=== PATIENT | male | born 1950 | race Caucasian/White ===

== ENCOUNTER 2019-02-20 14:09 | Inpatient (IN) | payer MEDICARE, BC, SELFPAY ==
[2019-02-20] VITALS (61 sets, daily range): BP systolic 150–208; BP diastolic 79–103; PULSE 65–94; RESP 11–23; TEMP 36.6–36.8; O2SAT 93–98
--- NOTE | 2019-02-20 14:39 | DI.RAD_ITS ---
SYMPTOMS/DIAGNOSIS: PRESYNCOPE PA AND LATERAL CHEST: The heart is normal in size. The lungs are clear. The mediastinal structures and pleura appear intact. CONCLUSION: Normal chest.
[2019-02-20 14:58] LABS: Abs Immature Grans 0.03 k/cumm (0.0-0.09); Absolute Eosinophil Count 0.06 k/cumm (0.0-0.7); Absolute Lymphocyte Count 2.21 k/cumm (1.2-3.4); Absolute Monocyte Count 0.86 k/cumm (0.11-0.7); Basophils % 0.2; Eosinophils % 0.5; HCT 43.2 % (40.0-50.0); HGB 14.3 g/dL (13.5-17.5); Immature Grans % 0.2; Lymphocytes % 18.2; Mean Corp. HGB Concentration 33.1 g/dL (32.0-36.0); Mean Corpuscular Hemoglobin 29.6 pg (27.0-33.0); Mean Corpuscular Volume 89.4 fL (80-95); Mean Platelet Volume 10.3 fL (8.0-11.0); Monocytes % 7.1; Neutrophils % 73.8; Platelet Count 195 x1000/uL (130-400); RBC 4.83 m/cumm (4.50-6.00); RBC Distribution Width 13.4 % (11.8-14.1); White Blood Cell Count 12.14 k/cumm (4.4-10.8)
[2019-02-20 14:59] LABS: Absolute Basophil Count 0.02 k/cumm (0.0-0.2); Absolute Neutrophil Count 8.96 k/cumm (1.2-6.7)
[2019-02-20 15:28] LABS: ALT 33 U/L (12-78); AST 17 U/L (15-37); Albumin 3.8 g/dL (3.4-5.0); Alkaline Phosphatase 88 U/L (46-116); Anion Gap 11.6 mmol/L (3-11); BUN 23 mg/dL (7-18); Bilirubin, Total 0.4 mg/dL (0.2-1.0); CO2 25.4 mmol/L (21.0-32.0); CREATININE 0.96 mg/dL (0.70-1.30); Calcium 9.1 mg/dL (8.5-10.1); Chloride 102 mmol/L (98-107); Glucose 136 mg/dL (70-100); Magnesium 1.9 mg/dL (1.8-2.4); Potassium 3.8 mmol/L (3.5-5.1); Sodium 139 mmol/L (136-145); Total Protein 8.2 g/dL (6.4-8.2)
[2019-02-20 15:29] LABS: D-Dimer 630 ng/mlFEU (<500)
--- NOTE | 2019-02-20 15:30 | DI.CT_ITS ---
SYMPTOM/DIAGNOSIS: ELEVATED D DIMER, PRESYNCOPE CT ANGIOGRAPHY CHEST: 02/20 CT angiography was performed with multi slice acquisition and multi planar and 3D reconstruction. CT angiography of the chest was performed with a bolus infusion of 100 cc Omnipaque 350. The images are somewhat limited due to patient's size, and motion artifact. No central pulmonary embolus identified. No embolus identified to the segmental level. More peripheral vessels not adequately evaluated. Ascending aorta ectatic at 42 mm, no aneurysm or dissection. The lungs are grossly clear with limited visualization of the lung bases secondary to breathing motion. Tracheobronchial tree appears intact. No gross mediastinal mass or adenopathy. No pleural effusion. CONCLUSION: Technically limited exam. No gross evidence of pulmonary embolic disease.
[2019-02-20 15:32] LABS: Troponin I < 0.05 ng/mL (0.00-0.06)
--- NOTE | 2019-02-20 15:33 | ED.GENADUL_ITS ---
Discharge Plan Disposition Condition: Stable Discharge Details Chief Complaint: AMS/LOC Admit Date/Time: 02/20/19 23:08 Admit Provider: Pietro Fitzpatrick Attending Provider: Pietro Fitzpatrick Primary Care Provider: Poly Geller ED Provider: Bulmaro Perez Discharge Instructions Activity:: No strenuous Activity, No heavy lifting Equipment/Supplies:: No Equipment Needed Diet:: Carb Counting Discharge Orders Discharge Orders: Discharge Order (Routine); Ordered 02/22/19 Ordered By: Chandana Moreau Discharge Data Discharge Date/Time-TO BE ENTERED AT DEPARTURE: 02/20/19 20:00 Medical Decision Making 15:40 --68-year-old male with history of long-standing hypertension, does not seek medical care and is not treated with antihypertensives, here after presyncopal episode just prior to arrival lasted about an hour. Episode was not associated with chest pain or shortness of breath and patient is asymptomatic at this time. Patient is hypertensive. Consider hypertensive crisis. ECG was reviewed and interpreted by me: Normal sinus rhythm 92 bpm, normal axis, ST depressions are noted in lead I, aVL, no STEMI, nondiagnostic. Patient has no chest pain at this time. I will send troponin. Concern for aortic stenosis given murmur, elevated blood pressure. No signs of overt heart failure. Will check BNP. Considered PE. Patient low risk. D-dimer elevated. Plan to proceed with CT of the chest. --CTA of the chest interpreted by radiology: IMPRESSION: 1. No definite pulmonary embolism is seen to the level of the lobar pulmonary arterial branches bilaterally. The heterogeneous or decreased density of some small segmental and subsegmental pulmonary arterial branches may reflect inadequate enhancement, beam hardening, or motion, flow, or partial volume averaging artifact. One or more small segmental or subsegmental pulmonary emboli cannot be excluded. 2. Unruptured aneurysm of the ascending aorta 4 x 4.2 cm. 3. No dissection of the aorta. 4. Mild opacities in the lower lobes may represent atelectasis or pneumonia. Patient was reassessed. He continues to have no pain and remains asymptomatic. Blood pressure has improved currently systolic of 160 without medication. All results were discussed with the patient and I discussed my treatment plan with him. He is agreeable to admission for I called and spoke with Dr. Maher, hospitalist, who will admit the patient and initiate antihypertensive treatment. He request bridging orders be placed for admission to the ICU. HPI General Mode of arrival: ambulatory . Date/Time Provider Initiated Documentation: 02/20/19 14:19 . Limitations to Documentation: no limitations . Information obtained by: patient . HPI Narrative: 68-year-old male here with chief complaint of felt like I was going to pass out. Symptoms started suddenly earlier this afternoon. Patient notes he was outside working in his yard and suddenly had some visual changes, described as blurring of his vision and then felt dizzy like he was going to pass out. Symptoms were severe. He went inside and symptoms persisted for about an hour. He denies associated chest pain or shortness of breath during the episode. Symptoms resolved on their own. Patient does have long-standing history of hypertension has been untreated. He does not have a primary care physician that he sees regularly. He is asymptomatic at this time. Related Data Home Medications Medication Instructions Recorded Confirmed acetaminophen [Tylenol] 650 mg PO Q4H PRN PRN #1 tab 02/22/19 amlodipine 5 mg PO BID #60 tab 02/22/19 aspirin 81 mg PO DAILY #1 tab 02/22/19 atorvastatin 40 mg PO QHS #30 tab 02/22/19 losartan 50 mg PO DAILY #30 tab 02/22/19 Previous Rx's Medication Instructions Recorded acetaminophen [Tylenol] 650 mg PO Q4H PRN PRN #1 tab 02/22/19 amlodipine 5 mg PO BID #60 tab 02/22/19 aspirin 81 mg PO DAILY #1 tab 02/22/19 atorvastatin 40 mg PO QHS #30 tab 02/22/19 losartan 50 mg PO DAILY #30 tab 02/22/19 Allergies Allergy/AdvReac Type Severity Reaction Status Date / Time No Known Allergies Allergy Unverified 02/20/19 14:23 General Stated Complaint: AMS/LOC LÓPEZ: 2 Review of Systems Review of Systems All systems reviewed & are unremarkable except as noted in HPI and below Constitutional Denies fever(s) Cardiovascular Reports as per HPI, Denies chest pain, Reports pedal edema, Denies dyspnea and Denies dyspnea on exertion Respiratory Denies dyspnea and Denies dyspnea on exertion PFSH Medical History Hypertension (Chronic) Family History Mother Hypertension Father Heart disease Diabetes Sister No problems noted. Sister No problems noted. Brother No problems noted. Social History Smoking/Tobacco Use Status: Never Alcohol Intake: current Alcohol Intake frequency: a few times a week Alcohol type: beer Drug use: Never Substance use type: does not use Household members: spouse current occupation: retired bee Do you feel safe at home: Yes Do you feel safe in your relationship?: Yes Exam Const General: cooperative and no acute distress HENMT Head: normocephalic Mouth: moist mucous membranes Eyes Conjunctivae: normal conjunctivae Sclera: normal sclerae EOM: EOM intact bilaterally Neck Neck: trachea midline and supple Resp Auscultation: clear to auscultation bilaterally, no rales, no rhonchi and no wheezes Cardio Jugular venous pressure: no JVD Rate: regular rate and not tachycardic Rhythm: regular rhythm Heart Sounds: murmur systolic III/ and at the right sternal border GI Palpation: soft, not firm, no guarding, no masses, not rigid and nontender Skin General skin exam: no rashes or lesions noted Neuro General: alert, awake and tone normal Extrem General: no edema Psych Appearance: grossly normal Mental Status: mental status grossly normal Speech and Movement: speech and movement normal Course Vital Signs Temperature 36.6 C 02/20/19 14:19 Pulse 94 H 02/20/19 14:19 Respiratory Rate 23 02/20/19 14:19 Blood Pressure 208/93 H 02/20/19 14:19 Pulse Oximetry 98 02/20/19 14:19 Temperature 36.6 C 02/20/19 14:19 Temperature Source Temporal Artery Scan 02/20/19 14:19 Pulse 94 H 02/20/19 14:19 Respiratory Rate 20 02/20/19 14:28 Respiratory Effort 02/20/19 14:28 Respiratory Depth Normal 02/20/19 14:28 Blood Pressure 208/93 H 02/20/19 14:19 Blood Pressure Position Supine 02/20/19 14:19 Pulse Oximetry 98 02/20/19 14:19 Oxygen Delivery Method Room Air 02/20/19 14:19 Oxygen Flow Rate 0 08/19/19 14:19 Pain Level 0 02/20/19 14:19 Lab/Test Results Lab/Test Results: Laboratory Tests Range/Units 02/20/19 02/20/19 02/20/19 14:30 14:30 14:30 WBC (4.4-10.8) k/cumm 12.14 H RBC (4.50-6.00) m/cumm 4.83 Hgb (13.5-17.5) g/dL 14.3 Hct (40.0-50.0) % 43.2 MCV (80-95) fL 89.4 MCH (27.0-33.0) pg 29.6 MCHC (32.0-36.0) g/dL 33.1 RDW (11.8-14.1) % 13.4 Plt Count (130-400) x1000/uL 195 MPV (8.0-11.0) fL 10.3 Immature Gran % 0.2 Neutrophils % 73.8 Lymphocytes % 18.2 Monocytes % 7.1 Eosinophils % 0.5 Basophils % 0.2 Absolute Neutrophils (1.2-6.7) k/cumm 8.96 H Absolute Lymphocytes (1.2-3.4) k/cumm 2.21 Absolute Monocytes (0.11-0.7) k/cumm 0.86 H Absolute Eosinophils (0.0-0.7) k/cumm 0.06 Absolute Basophils (0.0-0.2) k/cumm 0.02 D-Dimer (<500) ng/mlFEU 630 H Sodium (136-145) mmol/L 139 Potassium (3.5-5.1) mmol/L 3.8 Chloride (98-107) mmol/L 102 Carbon Dioxide (21.0-32.0) mmol/L 25.4 Anion Gap (3-11) mmol/L 11.6 H BUN (7-18) mg/dL 23 H Creatinine (0.70-1.30) mg/dL 0.96 Estimated GFR/1.73 m2 (mL/min/1.73m2) >= 60.00 Glucose (70-100) mg/dL 136 H Calcium (8.5-10.1) mg/dL 9.1 Magnesium (1.8-2.4) mg/dL 1.9 Total Bilirubin (0.2-1.0) mg/dL 0.4 AST (15-37) U/L 17 ALT (12-78) U/L 33 Alkaline Phosphatase (46-116) U/L 88 Troponin I (0.00-0.06) ng/mL < 0.05 Total Protein (6.4-8.2) g/dL 8.2 Albumin (3.4-5.0) g/dL 3.8
[2019-02-20 16:05] LABS: NT-proBNP 95 pg/mL
[2019-02-20] MEDS: Omnipaque 350 MG/ML 100 ML BTL IJ ×2 (16:17→23:31)
--- NOTE | 2019-02-20 16:32 | DI.VRAD_ITS ---
EXAM: CT Angiography Chest With Contrast EXAM DATE/TIME: 02/20/2019 3:31 PM CLINICAL HISTORY: 68 years old, male; Abnormal findings; Abnormal diagnostic tests; Elevated d-dimer; Patient HX: 630 d dimer; Pre syncope TECHNIQUE: Imaging protocol: Axial computed tomographic angiography images of the chest with intravenous contrast using CT angiography protocol. Coronal and sagittal reformatted images were created and reviewed. 3D rendering: MIP reconstructed images were created and reviewed. COMPARISON: CR XR CHEST 2V PA LATERAL 02/20/2019 3:06 PM FINDINGS: Pulmonary arteries: No definite pulmonary embolism is seen to the level of the lobar pulmonary arterial branches bilaterally. The heterogeneous or decreased density of some small segmental and subsegmental pulmonary arterial branches may reflect inadequate enhancement, beam hardening, or motion, flow, or partial volume averaging artifact. One or more small segmental or subsegmental pulmonary emboli cannot be excluded. Aorta: Unruptured aneurysm of the ascending aorta 4 x 4.2 cm. No dissection of the aorta. Lungs: Mild opacities in the lower lobes may represent atelectasis or pneumonia. Pleural space: Unremarkable. No pneumothorax. No pleural effusion. Heart: Unremarkable. No cardiomegaly. No pericardial effusion. Lymph nodes: Unremarkable. No enlarged lymph nodes. Bones/joints: Unremarkable. No acute fracture. Soft tissues: Unremarkable. Other findings: Motion artifact degrades images IMPRESSION: 1. No definite pulmonary embolism is seen to the level of the lobar pulmonary arterial branches bilaterally. The heterogeneous or decreased density of some small segmental and subsegmental pulmonary arterial branches may reflect inadequate enhancement, beam hardening, or motion, flow, or partial volume averaging artifact. One or more small segmental or subsegmental pulmonary emboli cannot be excluded. 2. Unruptured aneurysm of the ascending aorta 4 x 4.2 cm. 3. No dissection of the aorta. 4. Mild opacities in the lower lobes may represent atelectasis or pneumonia. Dictated and Authenticated by: Deric Michel MD. Ordering:JOAO Chamberlain MD
--- NOTE | 2019-02-20 19:19 | W.PM.HP.N ---
Date of service: 02/20/19 Time of Service: 19:19 Assessment and Plan (1) Hypertensive urgency: Current visit: Yes Status: Acute patient had symptomatic visual scotoma w/ extreme blood pressure elevation up to 220/110. Unfortunately he had severe bradycardia associated w/ transient junctional escape rhythm and therefore for tonight I am not going to use beta blockers to treat his HTN although BB would be ideal for his TAA. I will start him on losartan. He reportedly had been tried on this in the past and was intolerant although the exact reaction is unknown. He did not have any angioedema symptoms according to his . He did have a cough w/ lisiniopril. We may need to try a beta gurwinder but if I do so, then I will put him on a very short acting iv esmolol. If he tolerates this then he could go on lopressor or carvedilol. I did give him a dose of carvedilol 6.25 mg but he had this 6 minutes before his syncope and bradycardia spell and therefore I do not attribute this to his carvedilol The rest of his workup should include CTA of his brain/neck and eventually either CTA of his abdomen/pelvis or US of his abdomen to rule out other abdominal AAA. He will need an echo to look for aortic valve/root disease and evaluate for LV dysfunction, LVH, etc. He should also have stress MPI once his HTN is controlled. (2) Syncope: Current visit: Yes Status: Chronic probably vasovagal but can not entirely exclude intrinsic heart rhythm issues, although Dr. Perez, [facility] director of cardiology service line, doubts this in setting of no AV block on his routine 12 lead EKG. We will watch his rhythm overnight and avoid AV aleshia blocking agents for now and treat his HTN w/ losartan. If he goes into hypertensive crisis then I will put him on nifedipine drip. Qualifiers: Syncope type: unspecified Qualified Code(s): R55 - Syncope and collapse (3) Thoracic ascending aortic aneurysm: Current visit: Yes Status: Acute patient needs close monitoring by cardiology w/ Q 6 month echo. He also needs evaluation for cerebral and abdominal aneurysms. I am going to get CTA of head and neck tonight in light of his acute visual symptoms. I will wait on the CTA of his abdomen so as not to give too much contrast and cause RACHEL. History of Present Illness Chief Complaint: dizziness, near syncope, blurred vision Narrative: 68-year-old male with a history of hypertension not currently on medications. He has not seen a primary care provider in many years. He was brought to the emergency department by his who is a retired RN after he complained of acute onset of visual [place] which he described wavy lines out of his right eye and then it started out of his left eye beginning around 11:30 AM while he been out working on his tractor. There is no associated chest pain and no dyspnea. Family came in the house he noticed that when he tried to read anything he had central blurring on the page and was complaining of a frontal headache and headache behind the eyes. He took an aspirin but then felt lightheaded and clammy and felt like he was going to pass out. When his came home and found him feeling this way she took his blood pressure and it was elevated at 220/110. On his way to the hospital his symptoms started to resolve. There is been no associated chest pain or dyspnea and no palpitations. He did not actually pass out at home. Work-up in the emergency room included routine labs, EKG, CT angiogram of his chest. Upon arrival to the emergency department blood pressure was elevated at 208/93 but spontaneously came down on its own to 169/87 and 193/88. Routine chemistry was unremarkable except for slightly elevated BUN of 23 but a normal creatinine 0.96 and a glucose of 136. Electrolytes and LFTs were normal. His troponin I was less than 0.05 and is been repeated and remains less than 0.05. His proBNP was normal at 95. His d-dimer was elevated at 630 but with in his age-adjusted normal parameters. CBC demonstrate a slightly elevated white count 12,000 but otherwise was normal. Chest x-ray was read as normal chest. However his CTA of his chest was read as showing no pulmonary embolism but unruptured ascending thoracic aneurysm measuring 4 x 4.2 cm. Some mild opacities in the lower lobes that may represent atelectasis or pneumonia. There was some heterogeneous or decreased density of some of the small segmental and subsegmental pulmonary arterial branches there was felt to reflect inadequate enhancement or beam hardening or motion or flow or partial volume averaging. Radiologist cannot exclude the possibility of one or more small sub-mental or subsegmental pulmonary emboli. Baseline EKG on admission demonstrated sinus rhythm at a rate of 92 bpm with some small nonspecific ST depression in limb leads I and aVL. Patient was admitted to the intensive care unit for treatment of hypertensive urgency and near syncope and to evaluate for possible ACS as well as an echocardiogram to evaluate his cardiac murmur for suspicion of aortic valve disease. After presenting to the intensive care unit the patient refused to get in bed because of a backache from lying on the gurney in the emergency department. While sitting up in the chair he had a syncopal spell and had an episode of emesis. A CODE BLUE was called because the patient was unresponsive however he never lost his pulse. When I arrived to the room he was disoriented but talking after he got him back in the bed his immediate blood pressure was in the 160s. His heart rate returned to a sinus rhythm in the 70s to 80s. Upon review of his telemetry strips he was found to have at 2042 he was in sinus rhythm at a rate of 43 bpm but then became slower and he had some junctional escape beats and PVCs. His junctional rhythm was at a rate of 40. This continued on for a couple of minutes until he regained a sinus rhythm at 2044. Post syncopal EKG demonstrates sinus rhythm at a rate of 75 bpm with no acute ischemic ST or T wave changes. Repeat troponin was drawn came back normal at less than 0.05. Post syncope he denied any chest pain or pressure or dyspnea. I had radiology push his CTA of his chest to [facility] and I had his EKG and rhythm strips faxed to [facility] after which I spoke with Dr. Perez, director of cardiology service line on-call who reviewed the rhythm strips and after hearing the history feels that the patient's syncopal spell was probably a vasovagal reaction. He did not feel that he had any evidence of AV block on his EKG. He recommended treating his hypertensive urgency with a non-AV aleshia blocking medication such as losartan. If the patient develops hypertensive crisis tonight he recommend a nicardipine drip. If the patient needs a beta-gurwinder he should be tried on a very short acting IV beta-gurwinder such as esmolol. Post syncope the patient had transient blurred vision in his right eye with wavy scotomata. I will obtain an urgent CT angiogram of his cervical vessels in his brain to rule out any cerebral aneurysm. The goal will try for a 10 to 15% reduction in his blood pressure overnight. Review of Systems Constitutional Reports system reviewed and no additional complaints, except as docu and Reports headache(s) Eyes Reports blurry vision, Reports loss of vision (blurred central vision), Reports other visual disturbances and Reports other Comments: wavy scotomata ENT Reports system reviewed and no additional complaints, except as docu, Reports dizziness and Reports headache(s) Cardiovascular Denies chest pain, Denies chest pain at rest, Denies chest pain with activity, Reports diaphoresis, Reports syncope, Reports lightheadedness, Denies palpitations and Reports dyspnea on exertion Respiratory Reports dyspnea on exertion Gastrointestinal Reports system reviewed and no additional complaints, except as docu Genitourinary Reports system reviewed and no additional complaints, except as docu Musculoskeletal Reports system reviewed and no additional complaints, except as docu Integumentary/Breasts Reports system reviewed and no additional complaints, except as docu Neurologic Reports dizziness, Reports syncope, Reports headache(s), Denies focal weakness and Reports loss of vision (blurred central vision) Psychiatric Reports system reviewed and no additional complaints, except as docu Endocrine Reports system reviewed and no additional complaints, except as docu and Denies palpitations Hematologic/Lymphatic Reports system reviewed and no additional complaints, except as docu Allergic/Immunologic Reports system reviewed and no additional complaints, except as docu PFSH Family History (Updated 02/20/19 @ 22:51 by Pietro Fitzpatrick) Mother Hypertension Father Heart disease Diabetes Sister No problems noted. Sister No problems noted. Brother No problems noted. Social History (Updated 02/20/19 @ 22:51 by Pietro Fitzpatrick) Smoking/Tobacco Use Status: Never Alcohol Intake: current Alcohol Intake frequency: a few times a week Alcohol type: beer Drug use: Never Substance use type: does not use Household members: spouse current occupation: retired bee Do you feel safe at home: Yes Do you feel safe in your relationship?: Yes Meds Home Medications Medication Instructions Recorded Confirmed Type aspirin [Namita Aspirin] 325 mg PO PRN PRN 02/20/19 02/20/19 History Allergies Allergy/AdvReac Type Severity Reaction Status Date / Time No Known Allergies Allergy Unverified 02/20/19 14:23 Exam Const General: cooperative, comfortable, no acute distress and well developed Nutritional Appearance: obese Orientation: alert, awake and oriented x3 [facility] Head: normal to inspection, no palpable skull fracture and normocephalic Ears: hearing grossly normal bilaterally Mouth: oral mucosae normal, lip normal, tongue normal and oropharynx normal Neck Neck: normal visual inspection, full ROM, no lymphadenopathy, no meningeal signs, trachea midline, supple and no JVD Thyroid: thyroid normal Carotids: normal carotid upstroke and no bruits Lymphatic: no lymphadenopathy noted Chest Chest: normal inspection of the chest and normal palpation of entire chest wall Resp Effort & Inspection: normal respiratory effort and able to speak in complete sentences Auscultation: clear to auscultation bilaterally Cardio Jugular venous pressure: no JVD Palpation: normal PMI Rate: regular rate Rhythm: regular rhythm Heart Sounds: S1 normal, S2 normal, normal, physiologic split S2 and murmur systolic mid, crescendo, II/ and at the base Bruits: no abdominal aortic bruits and no carotid bruits Pulses: normal peripheral pulses GI Inspection: obesity Palpation: soft and no hepatosplenomegaly Percussion: normal to percussion Auscultation: normal bowel sounds Back/Spine/Pelvis Back: no CVA tenderness Cervical Spine: normal cervical lordosis Thoracic/Lumbar Spine: thoracic and lumbar spine normal to inspection Skin General skin exam: no rashes or lesions noted, elasticity normal and turgor normal Neuro General: alert, awake, oriented x3, moves all extremities, no focal motor deficits and CN's II-XI intact bilaterally Cranial Nerves: CN's II-XI intact bilaterally Cognition: normal cognition Speech: speech normal Motor: muscle tone normal throughout, strength 5/5 throughout and no movement abnormalities noted Sensory Exam: no sensory deficits noted Extrem General: normal to inspection, full ROM, normal capillary refill, no joint enlargement, no clubbing, cyanosis or edema and no calf tenderness Psych Appearance: grossly normal Mental Status: mental status grossly normal Speech and Movement: speech and movement normal Mood: congruent mood Affect: normal affect Attitude: cooperative Thought Process: normal Thought Content: normal Insight: insight good Judgment: judgment good Results Imaging Chest x-ray: report reviewed CT scan - chest: report reviewed EKG: image reviewed Labs : 02/20/19 14:30 02/20/19 14:30 Laboratory Results - last 24 hr 02/20/19 02/20/19 02/20/19 14:30 14:30 14:30 WBC 12.14 H RBC 4.83 Hgb 14.3 Hct 43.2 MCV 89.4 MCH 29.6 MCHC 33.1 RDW 13.4 Plt Count 195 MPV 10.3 Immature Gran % 0.2 Neutrophils % 73.8 Lymphocytes % 18.2 Monocytes % 7.1 Eosinophils % 0.5 Basophils % 0.2 Absolute Neutrophils 8.96 H Absolute Lymphocytes 2.21 Absolute Monocytes 0.86 H Absolute Eosinophils 0.06 Absolute Basophils 0.02 D-Dimer 630 H Sodium 139 Potassium 3.8 Chloride 102 Carbon Dioxide 25.4 Anion Gap 11.6 H BUN 23 H Creatinine 0.96 Estimated GFR/1.73 m2 >= 60.00 Glucose 136 H Calcium 9.1 Magnesium 1.9 Total Bilirubin 0.4 AST 17 ALT 33 Alkaline Phosphatase 88 Troponin I < 0.05 NT-Pro-B Natriuret Pep Total Protein 8.2 Albumin 3.8 02/20/19 14:30 WBC RBC Hgb Hct MCV MCH MCHC RDW Plt Count MPV Immature Gran % Neutrophils % Lymphocytes % Monocytes % Eosinophils % Basophils % Absolute Neutrophils Absolute Lymphocytes Absolute Monocytes Absolute Eosinophils Absolute Basophils D-Dimer Sodium Potassium Chloride Carbon Dioxide Anion Gap BUN Creatinine Estimated GFR/1.73 m2 Glucose Calcium Magnesium Total Bilirubin AST ALT Alkaline Phosphatase Troponin I NT-Pro-B Natriuret Pep 95 Total Protein Albumin Last Vital Signs Temp 36.6 C 02/20/19 14:19 Pulse 80 02/20/19 18:31 Resp 16 02/20/19 18:00 BP 187/91 H 02/20/19 18:31 Pulse Ox 96 02/20/19 18:31
[2019-02-20 20:20] LABS: Troponin I < 0.05 ng/mL (0.00-0.06)
[2019-02-20] MEDS: Enoxaparin 40 MG/0.4 ML SYR SC (20:38)
[2019-02-20] MEDS: Atorvastatin 40 MG TAB 80 MG PO (20:38)
[2019-02-20] MEDS: Normal Saline Flush 10 ML SYR IVP (20:38)
[2019-02-20] MEDS: Carvedilol 6.25 MG TAB PO (20:39)
[2019-02-20] MEDS: Normal Saline 1,000 ML 50 ML IV (20:43)
[2019-02-20 22:12] LABS: Troponin I < 0.05 ng/mL (0.00-0.06)
[2019-02-20] MEDS: Losartan 25 MG TAB PO (22:48)
--- NOTE | 2019-02-20 23:30 | DI.CT_ITS ---
SYMPTOM/DIAGNOSIS: ACUTE VISUAL SCOTOMATA, HYPERTENSIVE URGENCY CT ANGIOGRAPHY CERVICAL, CRANIAL : 02/20 CT angiography was performed with multi slice acquisition and multi planar and 3D reconstruction. CT angiography of the cervical cranial region was performed with intravenous infusion of 100 cc Omnipaque 350. Noncontrast scan of the head shows normal appearance of the ventricular system. No evidence of intracranial hemorrhage, mass effect or midline shift. Orbital and temporal bone structures appear intact. Mastoid air cells and paranasal sinuses are well aerated. No cervical mass or adenopathy. Salivary glands are unremarkable. Tracheolaryngeal structures appear intact. Limited visualization of the proximal portions of the common carotid arteries due to motion and patient's size. No evidence of occlusion or significant stenosis. Mild atheromatous change in the carotid bifurcations bilaterally, partially calcified. No significant stenosis or dissection. Internal carotid arteries show unremarkable appearance throughout the remaining cervical course. There is calcific atheromatous plaque in the cavernous portions of the ICA bilaterally without significant stenosis. Middle cerebral, anterior cerebral and posterior cerebral arteries and major branches appear normal with no evidence of occlusion, dissection or stenosis. Basilar artery appears normal. Vertebral arteries are unremarkable except for minimal atheromatous plaque formation without evidence of stenosis, aneurysm or dissection. CONCLUSION: No significant vascular lesion identified. Mild atheromatous change in common carotid, internal carotid and vertebral arteries without evidence of significant stenosis.
[2019-02-21] VITALS (111 sets, daily range): BP systolic 114–220; BP diastolic 59–103; PULSE 52–92; RESP 11–25; TEMP 36.6–37.3; O2SAT 90–96
--- NOTE | 2019-02-21 | DI.VRAD_ITS ---
EXAM: CT Angiography Head With Contrast EXAM DATE/TIME: 02/20/2019 10:29 PM CLINICAL HISTORY: 68 years old, male; Patient HX: Acute visual scotomata, hypertensive urgency TECHNIQUE: Imaging protocol: Computed tomographic angiography images of the head with intravenous contrast using CT angiography protocol. Coronal and sagittal reformatted images were created and reviewed. 3D rendering: MIP reconstructed images were created and reviewed. COMPARISON: No relevant prior studies available. FINDINGS: Right internal carotid artery: Unremarkable. Intracranial segment is patent with no significant stenosis. No aneurysm. Right anterior cerebral artery: Unremarkable. No occlusion or significant stenosis. No aneurysm. Right middle cerebral artery: Unremarkable. No occlusion or significant stenosis. No aneurysm. Right posterior cerebral artery: Unremarkable. No occlusion or significant stenosis. No aneurysm. Right vertebral artery: Unremarkable. No occlusion or significant stenosis. No aneurysm. Left internal carotid artery: Unremarkable. Intracranial segment is patent with no significant stenosis. No aneurysm. Left anterior cerebral artery: Unremarkable. No occlusion or significant stenosis. No aneurysm. Left middle cerebral artery: Unremarkable. No occlusion or significant stenosis. No aneurysm. Left posterior cerebral artery: Unremarkable. No occlusion or significant stenosis. No aneurysm. Left vertebral artery: Unremarkable. No occlusion or significant stenosis. No aneurysm. Basilar artery: Unremarkable. No occlusion or significant stenosis. No aneurysm. IMPRESSION: No acute findings. EXAM: CT Angiography Neck With Contrast EXAM DATE/TIME: 02/20/2019 10:29 PM CLINICAL HISTORY: 68 years old, male; Patient HX: Acute visual scotomata, hypertensive urgency TECHNIQUE: Imaging protocol: Axial computed tomographic angiography images of the neck with intravenous contrast using CT angiography protocol. Coronal and sagittal reformatted images were created and reviewed. 3D rendering: MIP reconstructed images were created and reviewed. COMPARISON: No relevant prior studies available. FINDINGS: VASCULATURE: Right common carotid artery: Unremarkable. No significant stenosis. No dissection or occlusion. Right internal carotid artery: Small mild calcified plaque at the origin. Extracranial segment is patent with no significant stenosis. No dissection or occlusion. Right external carotid artery: No occlusion or significant stenosis. Right vertebral artery: Unremarkable. No significant stenosis. No dissection or occlusion. Left common carotid artery: Unremarkable. No significant stenosis. No dissection or occlusion. Left internal carotid artery: Small amount calcified plaque at the origin. Extracranial segment is patent with no significant stenosis. No dissection or occlusion. Left external carotid artery: No occlusion or significant stenosis. Left vertebral artery: Unremarkable. No significant stenosis. No dissection or occlusion. NECK: Bones/joints: Unremarkable. Soft tissues: No significant soft tissue swelling. IMPRESSION: No acute findings. COMMENT: Reference per NASCET criteria for degree of stenosis: Mild: less than 50% stenosis. Moderate: 50-69% stenosis. Severe: 70-94% stenosis. Near occlusion: 95-99% stenosis. Dictated and Authenticated by: Bjorn Oakes MD. Ordering:[facility] Amari Westbrook MD
[2019-02-21] MEDS: Normal Saline Flush 10 ML SYR IVP (05:56)
[2019-02-21 06:59] LABS: Abs Immature Grans 0.03 k/cumm (0.0-0.09); Absolute Basophil Count 0.02 k/cumm (0.0-0.2); Absolute Eosinophil Count 0.03 k/cumm (0.0-0.7); Absolute Lymphocyte Count 1.46 k/cumm (1.2-3.4); Absolute Monocyte Count 0.58 k/cumm (0.11-0.7); Absolute Neutrophil Count 7.21 k/cumm (1.2-6.7); Basophils % 0.2; Eosinophils % 0.3; HCT 41.2 % (40.0-50.0); HGB 13.6 g/dL (13.5-17.5); Immature Grans % 0.3; Lymphocytes % 15.6; Mean Corpuscular Hemoglobin 29.7 pg (27.0-33.0); Mean Platelet Volume 10.5 fL (8.0-11.0); Monocytes % 6.2; Neutrophils % 77.4; Platelet Count 195 x1000/uL (130-400); RBC 4.58 m/cumm (4.50-6.00); RBC Distribution Width 13.5 % (11.8-14.1); White Blood Cell Count 9.33 k/cumm (4.4-10.8)
[2019-02-21 07:22] LABS: Anion Gap 9.5 mmol/L (3-11); BUN 20 mg/dL (7-18); CO2 25.5 mmol/L (21.0-32.0); CREATININE 0.87 mg/dL (0.70-1.30); Calcium 8.6 mg/dL (8.5-10.1); Calculated LDL 131 mg/dL; Chloride 101 mmol/L (98-107); Cholesterol 192 mg/dL (50-200); Glucose 158 mg/dL (70-100); HDL Cholesterol 39 mg/dL (40-60); Potassium 4.3 mmol/L (3.5-5.1); Sodium 136 mmol/L (136-145); Triglyceride 112 mg/dL (30-150)
[2019-02-21 07:32] LABS: Troponin I < 0.05 ng/mL (0.00-0.06)
[2019-02-21 07:53] LABS: Hemoglobin A1C 6.9 % (4.5-6.2)
--- NOTE | 2019-02-21 08:14 | PDOC.CMIN ---
- If Service Date Differs Date of service: 02/21/19 Time of Service: 08:14 Care Management Initial Assess REASON FOR HOSPITALIZATION:: Hypertensive urgency PAST MEDICAL HISTORY/PAST SURGICAL HISTORY:: Hypertension PREVIOUS FUNCTIONAL STATUS/SOCIAL/FAMILY SUPPORTS:: Phillip lives in a single family home in [place], [place] with his Shabnam. 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 Phillip is independent with all care and activities. He states he does not routinely seek medical care and has not seen a physivcian in about 10 years. CURRENT FUNCTIONAL STATUS:: Phillip was sitting up in a chair finishing his lunch when CM met with him. He was very pleasant and cooperative, smiling and joking throughout the conversation. His understanding is that he will likely be discharged later today. He does nor forsee the need for any services. ADVANCE DIRECTIVES:: On file. Shabnam RDZ Has patient been provided with information about the portal?: Yes Did the patient sign up for the portal?: No (intends to do so) CODE STATUS:: Full Code INSURANCE COVERAGE / FINANCIAL ISSUES:: Medicare. BC BS CURRENT HOME/COMMUNITY SERVICES/EQUIPMENT:: none currently PRIMARY CARE PHYSICIAN:: Poly Geller POTENTIAL DISCHARGE NEEDS:: follow up with PCP and discharge plan of care PATIENT/FAMILY EDUCATION NEEDS:: Discharge plan, limitations, follow up plan, Ask Me Three ANTICIPATED BARRIERS TO DISCHARGE:: none TRANSPORTATION:: via private vehicle with family PLAN:: Phillip will likely be discharged home with no new services. He will follow up with his PCP and discharge plan of care. he will be transported via private vehicle with his . CM will continue to provide support to patient, family and discharge planning concerns.
[2019-02-21] MEDS: Aspirin 81 MG CHEW PO (09:34)
[2019-02-21] MEDS: Losartan 25 MG TAB PO ×2 (09:34→13:05)
--- NOTE | 2019-02-21 10:03 | PHARADMIT ---
Admission Pharmacy Clinical Review Code Status Full Code Current Weight 142.2 kg Renally Cleared and Narrow Therapeutic Index Meds CrCl ~87ml/min QTc Value / Action Taken QTc 430 BP Control, Fever BP 170/87, afebrile Electrolytes reviewed Na 136, K+ 4.3, Mag 1.9 (02/20) DVT Prophylaxis Lovenox 40mg Opiate Usage / Scheduled Bowel Regimen Ordered None Plt/SCr for Heparin / Enoxaparin Plt 195, Scr 0.87 INR for Warfarin H/H stable, WBC/Bands H/H 41.2/13.6, WBC 9.33 (down from 12.14), ANC 7.21 Antibiotic appropriateness None Cultures and Sensitivities Surgical ABX d/c within 24 hr DM control / Insulin Dosing Heart Failure (Check EF%) (LENO's, B-Block, Diuretics) No - started on losartan 50mg daily here IV to PO Switch Home Meds Reviewed Yes Home Meds Not Ordered No hx except aspirin PRN -- ER note states he has long-standing HTN but does not seek medical care and is not treated with any antihypertensives Comments Although beta gurwinder would be idea for TAA, had severe bradycardia (most likely vasovagal per consult with [facility] cardio fellow) so was started on losartan -- may have been intolerant to ACEI/ARB in the past so monitor for side effects
--- NOTE | 2019-02-21 12:20 | MERGE_ITS ---
*[facility]* *[facility]* [address] [place] [address] Date of study: 02/21/2019 Transthoracic Echocardiography M-mode, complete 2D, complete spectral Doppler, and color Doppler *STUDY CONCLUSIONS* Summary: 1. Left ventricle: The cavity size was normal. There was moderate concentric hypertrophy. Systolic function was normal. The estimated ejection fraction was 60-65%. Wall motion was normal; there were no regional wall motion abnormalities. 2. Aortic valve: Trileaflet. Mild thickening and calcification involving the noncoronary cusp. Noncoronary cusp mobility was mildly restricted. There was very mild stenosis. Peak velocity (S): 2.1m/sec. Mean gradient (S): 11.7mm Hg. Valve area (VTI): 2.3cm^2. Peak velocity ratio of LVOT to aortic valve: 0.47. 3. Aorta: There was a moderate-sized ectatic segment, extending from the ascending aorta to the aortic arch. The maximal diameter was 4.0cm. 4. Right ventricle: The cavity size was normal. Wall thickness was normal. Systolic function was normal. *PATIENT PRESENTATION* Height: 180.3cm (71in ) S/D Pressure: 157 / 97 Weight: 142.9kg (314.3lb ) BSA: 2.74m^2 Test start time: 12:30 PM. Test stop time: 01:15 PM. PERFORMING Unknown PERFORMING Nv CONSULTING Thomas Fitzpatrick ORDERING Thomas Fitzpatrick REFERRING Thomas Fitzpatrick FITTER MECHANIC Alicia Champagne, RT (R)(CT), [facility] *PROCEDURE DATA* Procedure information: The patient was identified by two identifiers. This study was interpreted by [facility]. Pertinent images and digital data are archived for permanent storage and are available for subsequent review. No prior study was available for comparison. Study status: Routine. Transthoracic echocardiography. M-mode, complete 2D, complete spectral Doppler, and color Doppler. A Transthoracic Echocardiogram was performed. Scanning was performed from the parasternal, apical, subcostal, and suprasternal notch acoustic windows. Images were obtained using an [id number]. cardiac ultrasound machine. Image quality was adequate. Study completion: The patient tolerated the procedure well. History: PMH: TAA, murmur, evaluate for bicuspid aortic valve. *CARDIAC ANATOMY* Left ventricle: The cavity size was normal. There was moderate concentric hypertrophy. Systolic function was normal. The estimated ejection fraction was 60-65%. Wall motion was normal; there were no regional wall motion abnormalities. Diastolic parameters were normal. Aortic valve: Trileaflet. Mild thickening and calcification involving the noncoronary cusp. Noncoronary cusp mobility was mildly restricted. Doppler: There was very mild stenosis. There was no significant regurgitation. VTI ratio of LVOT to aortic valve: 0.56. Valve area (VTI): 2.3cm^2. Indexed valve area (VTI): 0.9cm^2/m^2. Peak velocity ratio of LVOT to aortic valve: 0.47. Valve area (Vmax): 2cm^2. Indexed valve area (Vmax): 0.7cm^2/m^2. Mean velocity ratio of LVOT to aortic valve: 0.43. Valve area (Vmean): 1.8cm^2. Indexed valve area (Vmean): 0.7cm^2/m^2. Mean gradient (S): 11.7mm Hg. Peak gradient (S): 18.3mm Hg. Aorta: There was a moderate-sized ectatic segment, extending from the ascending aorta to the aortic arch. The maximal diameter was 4.0cm. Aortic root: The aortic root was normal in size. Mitral valve: Structurally normal valve. Mobility was not restricted. Doppler: Transvalvular velocity was within the normal range. There was no evidence for stenosis. There was no significant regurgitation. Valve area by pressure half-time: 2.9cm^2. Indexed valve area by pressure half-time: 1.1cm^2/m^2. Peak gradient (D): 2mm Hg. Left atrium: The atrium was normal in size. Right ventricle: The cavity size was normal. Wall thickness was normal. Systolic function was normal. Pulmonic valve: Structurally normal valve. Doppler: Transvalvular velocity was within the normal range. There was no evidence for stenosis. There was no significant regurgitation. Peak gradient (S): 6.1mm Hg. Tricuspid valve: Structurally normal valve. Doppler: Transvalvular velocity was within the normal range. There was no evidence for stenosis. There was no significant regurgitation. Pulmonary artery: Pulmonary systolic pressure was within the normal range. Right atrium: The atrium was normal in size. Pericardium: There was no pericardial effusion. Systemic veins: Inferior vena cava: Well visualized. The vessel was patent and normal in size. Baseline ECG: Normal sinus rhythm. Measurements Left ventricle Value Reference LV ID, ED, PLAX 5.6 cm 3.5 - 6.0 LV ID, ES, PLAX (H) 4.1 cm 2.1 - 4.0 LV PW thickness, ED, PLAX 1.5 cm LV end-diastolic volume, 1-p A2C 189 ml LV ejection fraction, 1-p A2C 56 % LV end-diastolic volume, 1-p A4C 222 ml LV ejection fraction, 1-p A4C 50 % LV e', lateral 0.117 m/sec LV E/e', lateral 6 LV e', medial 0.06 m/sec LV E/e', medial 12 LV e', average 0.088 m/sec LV E/e', average 8 Ventricular septum Value Reference IVS thickness, ED, PLAX 1.4 cm LVOT Value Reference LVOT ID, A-P 2.3 cm LVOT area 4.2 cm^2 LVOT peak velocity, S 1 m/sec LVOT mean velocity, S 0.72 m/sec LVOT VTI, S 23.1 cm LVOT peak gradient, S 4 mm Hg LVOT mean gradient, S 2.3 mm Hg Stroke volume (SV), LVOT DP 96 ml Stroke index (SV/bsa), LVOT DP 35 ml/m^2 Aortic valve Value Reference Aortic valve peak velocity, S 2.1 m/sec Aortic valve mean velocity, S 1.7 m/sec Aortic valve VTI, S 41.0 cm Aortic mean gradient, S 11.7 mm Hg Aortic peak gradient, S 18.3 mm Hg VTI ratio, LVOT/AV 0.56 Aortic valve area, VTI 2.3 cm^2 Velocity ratio, peak, LVOT/AV 0.47 Aortic valve area, peak velocity 2 cm^2 Velocity ratio, mean, LVOT/AV 0.43 Aortic valve area, mean velocity 1.8 cm^2 Aortic valve area/bsa, mean velocity 0.7 cm^2/m^2 Aorta Value Reference Aortic root ID, ED 3.5 cm Ascending aorta ID, A-P, S 4.0 cm Left atrium Value Reference LA ID, A-P, ES 3.6 cm LA ID/bsa, A-P 1.3 cm/m^2 <=2.2 LA volume/bsa, ES, 1-p A4C 23 ml/m^2 LA volume, ES, 2-p 63 ml LA volume/bsa, ES, 2-p 23 ml/m^2 LA/aortic root ratio 1.03 Mitral valve Value Reference Mitral E-wave peak velocity 0.71 m/sec Mitral A-wave peak velocity 1.1 m/sec Mitral deceleration time (H) 259 ms 150 - 230 Mitral pressure half-time 75 ms Mitral peak gradient, D 2 mm Hg Mitral E/A ratio, peak 0.64 Mitral valve area, PHT, DP 2.9 cm^2 Pulmonary veins Value Reference Pulmonary vein peak velocity, S 0.57 m/sec Pulmonary vein peak velocity, D 0.52 m/sec Pulmonary vein velocity ratio, peak, 1.09 S/D Pulmonary vein A-wave reversal peak 0.31 m/sec velocity Pulmonary vein A-wave reversal 185 ms duration Tricuspid valve Value Reference Tricuspid regurg peak velocity 2.1 m/sec Tricuspid peak RV-RA gradient 18.2 mm Hg Right atrium Value Reference RA area, ES, A4C 14.7 cm^2 8.3 - 19.5 Pulmonic valve Value Reference Pulmonic peak gradient, S 6.1 mm Hg Legend: (L) and (H) matt values outside specified reference range. I have personally reviewed the images and have reviewed and edited the reported findings. Electronically signed by Calderon Mendez 02/21/2019 14:31
--- NOTE | 2019-02-21 14:30 | CHAPLAIN ---
Phillip was resting in bed when I visited. He was friendly and engaged in a conversation. He believes he'll be discharged later today. His was with him. He seems comfortable being here, but is looking forward to getting home.
--- NOTE | 2019-02-21 14:40 | W.PM.PROGNOT ---
Date of Service Date of service: 02/21/19 Time of Service: 14:41 Assessment and Plan (1) Hypertensive urgency: Current visit: Yes Status: Acute Appears improved, but with continued elevated blood pressures. - Goal for slow decrease in blood pressures - likely systolic goal for now is around 160, with further titration as outpatient. - Continue but increase dose ARB, and initiate moderate dose CCB this afternoon. Allergy to LENO-I noted (cough). Would be cautious with BB therapy as patient's HR is currently in the 50-60's - also with development of bradycardia and junctional rhythm overnight which were very likely vasovagal induced. - Continue to monitor closely. (2) Thoracic ascending aortic aneurysm: Current visit: Yes Status: Acute 4.2 cm aneurysm, which needs long-term follow-up. Patient was initiated on ARB therapy, and daily high potency statin was added to his aspirin. Aim for improved blood pressure control. Will need follow-up as outpatient. (3) Diabetes mellitus: Current visit: Yes Status: Chronic New diagnosis based a HgA1C of 6.9% this morning. Hold off on Rx, advise weight loss and exercise, and continue initiated ARB. (4) DVT prophylaxis: Current visit: Yes Status: Acute SC Enoxaparin. Subjective Interval history since last seen: 68-year-old man with a prior history of HTN, admitted from [facility] Emergency Department with a diagnosis of Hypertensive Urgency. Mr. Prado has a history of HTN, not taking any medications currently, and has not seen a primary care provider in many years. The patient experienced an acute onset of vision changes (described as wavy lines and central blurring) while working on his tractor. While the patient had no associated CP or dyspnea, there was reported headache, lightheadedness, and near syncope associated with his symptoms. 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 Work-up in the Emergency Department was significant for a significantly elevated blood pressure, minimally elevated WBC, with normal renal function, electrolytes, LFTs, and Troponin. CXR was normal, but a CTA of the chest showed evidence of a 4.2 cm Ascending Aortic Aneurysm without acute dissection. He was referred for further evaluation and treatment of presumed Hypertensive Urgency. Shortly after admission the patient suffered a syncopal episode with a bout of emesis after standing up from his bed to sit in a chair. He had a brief moment of unresponsiveness, but with immediate regaining of normal mental status. Review of telemetry showed a very brief run of bradycardia, with some junctional escape beats and PVCs, deemed likely secondary to a Vasovagal episode. Repeat cardiac biomarkers remained negative, and a CTA of the head and neck showed lack of significant vascular lesions or stenosis. This morning Mr. Prado's blood pressure is somewhat improved but still suboptimal. ECHO obtained is essentially normal, but with evidence of LVH, very mild , and aortic aneurysm as previously detected. Exam Narrative Exam Narrative: General: Patient appears comfortable, AAOX3, NAD Neck: Supple CV: Regular, nontachycardic, S1S2, No rubs, murmurs, or gallops. Pulmonary: Clear to auscultation bilaterally, no crackles, wheezing, or rhonchi Abdomen: + Bowel Sounds, soft, nontender, nondistended, obese in contour Vascular: No lower extremity edema Psych: Normal mood and affect. Objective Objective Clinical Data: Abnormal lab results 02/20/19 02/20/19 02/20/19 Range/Units 14:30 14:30 14:30 WBC 12.14 H (4.4-10.8) k/cumm Absolute Neutrophils 8.96 H (1.2-6.7) k/cumm Absolute Monocytes 0.86 H (0.11-0.7) k/cumm D-Dimer 630 H (<500) ng/mlFEU Anion Gap 11.6 H (3-11) mmol/L BUN 23 H (7-18) mg/dL Glucose 136 H (70-100) mg/dL Hemoglobin A1c (4.5-6.2) % HDL Cholesterol (40-60) mg/dL 02/21/19 02/21/19 02/21/19 Range/Units 06:01 06:01 06:01 WBC (4.4-10.8) k/cumm Absolute Neutrophils 7.21 H (1.2-6.7) k/cumm Absolute Monocytes (0.11-0.7) k/cumm D-Dimer (<500) ng/mlFEU Anion Gap (3-11) mmol/L BUN 20 H (7-18) mg/dL Glucose 158 H (70-100) mg/dL Hemoglobin A1c 6.9 H (4.5-6.2) % HDL Cholesterol 39 L (40-60) mg/dL Vital Signs Temperature 36.7 C 02/21/19 13:39 Temperature Source Temporal Artery Scan 02/21/19 13:39 Pulse 70 02/21/19 13:39 Pulse 67 02/21/19 07:31 Respiratory Rate 16 02/21/19 13:39 Respiratory Effort 02/21/19 13:39 Respiratory Depth Normal 02/21/19 13:39 Respiratory Pattern Normal 02/21/19 13:39 Blood Pressure 185/90 H 02/21/19 13:39 Blood Pressure Mean 121 02/21/19 13:39 Blood Pressure Position Supine 02/20/19 14:19 Pulse Oximetry 96 02/21/19 13:39 Oxygen Delivery Method Room Air 02/21/19 13:39 Oxygen Flow Rate 0 02/21/19 13:39 Pain Level 0 02/21/19 13:39 Intake & Output 02/20/19 02/21/19 02/21/19 23:59 11:59 23:59 Intake Total 720 / 720 390 / 390 Output Total 100 / 100 775 / 1075 300 / 1075 Balance 620 / 620 -385 / -685 -300 / -685 Weight 142.9 kg 142.2 kg Intake: Oral 720 / 720 390 / 390 Output: Urine 100 / 100 775 / 1075 300 / 1075 Other: Urine Color Yellow Yellow Urine Appearance Clear Clear Urine Odor Strong Comment voids to urinal voids to urinal Voiding Methods Urinal Urinal Laboratory Results WBC 9.33 k/cumm (4.4-10.8) 02/21/19 06:01 RBC 4.58 m/cumm (4.50-6.00) 02/21/19 06:01 Hgb 13.6 g/dL (13.5-17.5) 02/21/19 06:01 Hct 41.2 % (40.0-50.0) 02/21/19 06:01 MCV 90.0 fL (80-95) 02/21/19 06:01 MCH 29.7 pg (27.0-33.0) 02/21/19 06:01 MCHC 33.0 g/dL (32.0-36.0) 02/21/19 06:01 RDW 13.5 % (11.8-14.1) 02/21/19 06:01 Plt Count 195 x1000/uL (130-400) 02/21/19 06:01 MPV 10.5 fL (8.0-11.0) 02/21/19 06:01 Immature Gran % 0.3 02/21/19 06:01 77.4 02/21/19 06:01 15.6 02/21/19 06:01 6.2 02/21/19 06:01 0.3 02/21/19 06:01 0.2 02/21/19 06:01 Absolute Neutrophils 7.21 k/cumm (1.2-6.7) H 02/21/19 06:01 Absolute Lymphocytes 1.46 k/cumm (1.2-3.4) 02/21/19 06:01 Absolute Monocytes 0.58 k/cumm (0.11-0.7) 02/21/19 06:01 Absolute Eosinophils 0.03 k/cumm (0.0-0.7) 02/21/19 06:01 Absolute Basophils 0.02 k/cumm (0.0-0.2) 02/21/19 06:01 630 ng/mlFEU (<500) H 02/20/19 14:30 Sodium 136 mmol/L (136-145) 02/21/19 06:01 Potassium 4.3 mmol/L (3.5-5.1) 02/21/19 06:01 Chloride 101 mmol/L (98-107) 02/21/19 06:01 Carbon Dioxide 25.5 mmol/L (21.0-32.0) 02/21/19 06:01 9.5 mmol/L (3-11) 02/21/19 06:01 BUN 20 mg/dL (7-18) H 02/21/19 06:01 0.87 mg/dL (0.70-1.30) 02/21/19 06:01 >= 60.00 (mL/min/1.73m2) 02/21/19 06:01 Glucose 158 mg/dL (70-100) H 02/21/19 06:01 6.9 % (4.5-6.2) H 02/21/19 06:01 Calcium 8.6 mg/dL (8.5-10.1) 02/21/19 06:01 Magnesium 1.9 mg/dL (1.8-2.4) 02/20/19 14:30 0.4 mg/dL (0.2-1.0) 02/20/19 14:30 AST 17 U/L (15-37) 02/20/19 14:30 ALT 33 U/L (12-78) 02/20/19 14:30 88 U/L (46-116) 02/20/19 14:30 < 0.05 ng/mL (0.00-0.06) 02/21/19 06:01 NT-Pro-B Natriuret Pep 95 pg/mL (-299) 02/20/19 14:30 8.2 g/dL (6.4-8.2) 02/20/19 14:30 3.8 g/dL (3.4-5.0) 02/20/19 14:30 Triglycerides 112 mg/dL (30-150) 02/21/19 06:01 192 mg/dL (50-200) 02/21/19 06:01 LDL Cholesterol, Calc 131 mg/dL 02/21/19 06:01 39 mg/dL (40-60) L 02/21/19 06:01
[2019-02-21] MEDS: amLODIPine 5 MG TAB PO (16:08)
[2019-02-21] MEDS: Enoxaparin 40 MG/0.4 ML SYR SC (21:15)
[2019-02-21] MEDS: Atorvastatin 40 MG TAB 80 MG PO (21:15)
[2019-02-22] VITALS (22 sets, daily range): BP systolic 96–177; BP diastolic 81–101; PULSE 53–86; RESP 10–29; TEMP 36.3; O2SAT 96–98
[2019-02-22 08:16] LABS: Abs Immature Grans 0.02 k/cumm (0.0-0.09); Absolute Basophil Count 0.02 k/cumm (0.0-0.2); Absolute Eosinophil Count 0.16 k/cumm (0.0-0.7); Absolute Lymphocyte Count 1.77 k/cumm (1.2-3.4); Absolute Monocyte Count 0.79 k/cumm (0.11-0.7); Absolute Neutrophil Count 5.85 k/cumm (1.2-6.7); Basophils % 0.2; Eosinophils % 1.9; HGB 13.8 g/dL (13.5-17.5); Immature Grans % 0.2; Lymphocytes % 20.6; Mean Corp. HGB Concentration 32.9 g/dL (32.0-36.0); Mean Corpuscular Hemoglobin 29.9 pg (27.0-33.0); Mean Corpuscular Volume 91.1 fL (80-95); Monocytes % 9.2; Neutrophils % 67.9; Platelet Count 189 x1000/uL (130-400); RBC 4.61 m/cumm (4.50-6.00); RBC Distribution Width 13.6 % (11.8-14.1); White Blood Cell Count 8.61 k/cumm (4.4-10.8)
[2019-02-22 08:46] LABS: Anion Gap 8.2 mmol/L (3-11); BUN 18 mg/dL (7-18); CO2 27.8 mmol/L (21.0-32.0); Chloride 105 mmol/L (98-107); Glucose 142 mg/dL (70-100); Potassium 4.4 mmol/L (3.5-5.1); Sodium 141 mmol/L (136-145)
[2019-02-22 08:47] LABS: Magnesium 2.2 mg/dL (1.8-2.4)
[2019-02-22] MEDS: Aspirin 81 MG CHEW PO (09:06)
[2019-02-22] MEDS: Losartan 25 MG TAB 50 MG PO (09:06)
--- NOTE | 2019-02-22 11:42 | W.PM.DS.N ---
Date of service: 02/22/19 Time of Service: 11:42 DS: Diagnosis Discharge Diagnosis (1) Hypertensive urgency: Status: Acute (2) Thoracic ascending aortic aneurysm: Status: Acute (3) Diabetes mellitus: Status: Chronic Discharge Plan Discharge Details Chief Complaint: AMS/LOC Reason For Visit: MURMUR,ASCENDING AORTIC ANEURYSM,PRESYNCOPE,HYPERT Admit Date/Time: 02/20/19 23:08 Admit Provider: Pietro Fitzpatrick Attending Provider: Pietro Fitzpatrick Primary Care Provider: Poly Geller ED Provider: Bulmaro Perez Hospital Course Hospital Course: Chief Complaint: Hypertensive Urgency HPI: 68-year-old man with a prior history of HTN, admitted from [facility] Emergency Department with a diagnosis of Hypertensive Urgency. Mr. Prado has a history of HTN, not taking any medications currently, and has not seen a primary care provider in many years. The patient experienced an acute onset of vision changes (described as wavy lines and central blurring) while working on his tractor. While the patient had no associated CP or dyspnea, there was reported headache, lightheadedness, and near syncope associated with his symptoms. 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 Work-up in the Emergency Department was significant for an elevated blood pressure, minimally elevated WBC, with normal renal function, electrolytes, LFTs, and Troponin. CXR was normal, but a CTA of the chest showed evidence of a 4.2 cm Ascending Aortic Aneurysm without acute dissection. He was referred for further evaluation and treatment of presumed Hypertensive Urgency. Shortly after admission the patient suffered a syncopal episode with a bout of emesis after standing up from his bed to sit in a chair. He had a brief moment of unresponsiveness, but with immediate regaining of normal mental status. Review of telemetry showed a very brief run of bradycardia, with some junctional escape beats and PVCs, deemed likely secondary to a Vasovagal episode. Repeat cardiac biomarkers remained negative, and a CTA of the head and neck showed lack of significant vascular lesions or stenosis. This morning Mr. Prado's blood pressure has improvedl. ECHO was obtained and is essentially normal, but with evidence of LVH, very mild , and aortic aneurysm as previously detected. Hospital Course: (1) Hypertensive urgency: Appears improved, but with continued elevated blood pressures that will need to be gradually reduced. - Goal for slow decrease in blood pressures - pressures mostly in the 150-170's with current regimen. Further titration will be required as outpatient. - Will plan on continuation of moderately dosed ARB and initiated CCB, and expect that blood pressure will settle around 150-160 systolic on this regimen. Will eventually need reduction to 100-120's . Allergy to LENO-I noted (cough). Would be cautious with BB therapy as patient's HR is currently in the 50-60's - also with development of bradycardia and junctional rhythm which were very likely vasovagal induced, and without evidence of intrinsic conduction disease per discussion with cardiology. (2) Thoracic ascending aortic aneurysm: 4.2 cm aneurysm, which needs long-term follow-up and continued surveillance. Patient was initiated on ARB therapy, and daily high potency statin was added to his aspirin. Aim for improved blood pressure control. Will need follow-up as outpatient. Also recommend avoidance of Fluoroquinolonges long-term. - Will also likely benefit from AAA screening as outpatient. (3) Diabetes mellitus: New diagnosis based a HgA1C of 6.9%. Discussed need for lifestyle modifications, and consulted personal development educator. Was initiated on ARB. (4) DVT prophylaxis: Was maintained on SC Enoxaparin. 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 Will schedule for a new PCP within one week.6 Home Meds and New Rx's Prescriptions: New acetaminophen [Tylenol] 325 mg Tablet 650 mg PO Q4H PRN PRN (Reason: pain) Qty: 1 RF: 0 aspirin 81 mg Tablet,Chewable 81 mg PO DAILY Qty: 1 RF: 0 losartan 25 mg Tablet 50 mg PO DAILY Qty: 30 RF: 0 amlodipine 5 mg tablet 5 mg PO BID Qty: 60 RF: 0 atorvastatin 40 mg tablet 40 mg PO QHS Qty: 30 RF: 0 Discontinued aspirin [Namita Aspirin] 325 mg Tablet 325 mg PO PRN PRNRF: 0 Discharge Instructions Instructions: Diabetes Mellitus Type 2 in Adults (GEN), Thoracic Aortic Aneurysm (GEN), Chronic Hypertension (DC) Activity:: No strenuous Activity, No heavy lifting Equipment/Supplies:: No Equipment Needed Diet:: Carb Counting DS: Data Vitals/I&O Vitals and I&O: Vital Signs Temperature 36.3 C L 02/22/19 05:00 Temperature Source Tympanic 02/22/19 05:00 Pulse 72 02/22/19 09:50 Pulse 86 02/22/19 05:00 Respiratory Rate 16 02/22/19 09:50 Respiratory Effort 02/22/19 09:50 Respiratory Depth Normal 02/22/19 09:50 Respiratory Pattern Normal 02/22/19 09:50 Blood Pressure 156/82 H 02/22/19 09:50 Blood Pressure Mean 106 02/22/19 09:50 Blood Pressure Position Sitting 02/22/19 09:50 Pulse Oximetry 98 02/22/19 09:50 Oxygen Delivery Method Room Air 02/22/19 09:50 Oxygen Flow Rate 0 02/22/19 09:50 Pain Level 0 02/22/19 09:50 Intake & Output 02/21/19 02/21/19 02/22/19 11:59 23:59 11:59 Intake Total 390 / 2270 1880 / 2270 240 / 240 Output Total 775 / 2575 1800 / 2575 1325 / 1325 Balance -385 / -305 80 / -305 -1085 / -1085 Weight 142.2 kg 142.6 kg Intake: IV 1000 / 1000 Oral 390 / 1270 880 / 1270 240 / 240 Output: Urine 775 / 2575 1800 / 2575 1325 / 1325 Other: Urine Color Yellow Yellow Yellow Urine Appearance Clear Clear Clear Urine Odor Strong Strong None Comment voids to urinal voided 325cc's of normal, yellow urine with negative dipstick voided 575cc's in urinal at this time Stool Occult Blood Negative Stool Size Large Stool Characteristics Soft Voiding Methods Urinal Urinal Urinal Pending studies at discharge: Exam(s) a US:US echocardiogram Date of study: 02/21/2019 Transthoracic Echocardiography M-mode, complete 2D, complete spectral Doppler, and color Doppler *STUDY CONCLUSIONS* Summary: 1. Left ventricle: The cavity size was normal. There was moderate concentric hypertrophy. Systolic function was normal. The estimated ejection fraction was 60-65%. Wall motion was normal; there were no regional wall motion abnormalities. 2. Aortic valve: Trileaflet. Mild thickening and calcification involving the noncoronary cusp. Noncoronary cusp mobility was mildly restricted. There was very mild stenosis. Peak velocity (S): 2.1m/sec. Mean gradient (S): 11.7mm Hg. Valve area (VTI): 2.3cm^2. Peak velocity ratio of LVOT to aortic valve: 0.47. 3. Aorta: There was a moderate-sized ectatic segment, extending from the ascending aorta to the aortic arch. The maximal diameter was 4.0cm. 4. Right ventricle: The cavity size was normal. Wall thickness was normal. Systolic function was normal. Exam(s) 02/20/[address]:CT brain & neck CTA SYMPTOM/DIAGNOSIS: ACUTE VISUAL SCOTOMATA, HYPERTENSIVE URGENCY CT ANGIOGRAPHY CERVICAL, CRANIAL : 02/20 CT angiography was performed with multi slice acquisition and multi planar and 3D reconstruction. CT angiography of the cervical cranial region was performed with intravenous infusion of 100 cc Omnipaque 350. Noncontrast scan of the head shows normal appearance of the ventricular system. No evidence of intracranial hemorrhage, mass effect or midline shift. Orbital and temporal bone structures appear intact. Mastoid air cells and paranasal sinuses are well aerated. No cervical mass or adenopathy. Salivary glands are unremarkable. Tracheolaryngeal structures appear intact. Limited visualization of the proximal portions of the common carotid arteries due to motion and patient's size. No evidence of occlusion or significant stenosis. Mild atheromatous change in the carotid bifurcations bilaterally, partially calcified. No significant stenosis or dissection. Internal carotid arteries show unremarkable appearance throughout the remaining cervical course. There is calcific atheromatous plaque in the cavernous portions of the ICA bilaterally without significant stenosis. Middle cerebral, anterior cerebral and posterior cerebral arteries and major branches appear normal with no evidence of occlusion, dissection or stenosis. Basilar artery appears normal. Vertebral arteries are unremarkable except for minimal atheromatous plaque formation without evidence of stenosis, aneurysm or dissection. CONCLUSION: No significant vascular lesion identified. Mild atheromatous change in common carotid, internal carotid and vertebral arteries without evidence of significant stenosis. --------- Exam(s) 02/20/[address]:CT chest PE CTA SYMPTOM/DIAGNOSIS: ELEVATED D DIMER, PRESYNCOPE CT ANGIOGRAPHY CHEST: 02/20 CT angiography was performed with multi slice acquisition and multi planar and 3D reconstruction. CT angiography of the chest was performed with a bolus infusion of 100 cc Omnipaque 350. The images are somewhat limited due to patient's size, and motion artifact. No central pulmonary embolus identified. No embolus identified to the segmental level. More peripheral vessels not adequately evaluated. Ascending aorta ectatic at 42 mm, no aneurysm or dissection. The lungs are grossly clear with limited visualization of the lung bases secondary to breathing motion. Tracheobronchial tree appears intact. No gross mediastinal mass or adenopathy. No pleural effusion. CONCLUSION: Technically limited exam. No gross evidence of pulmonary embolic disease. Exam(s) 02/20/2019 a RAD:XR chest 2V PA & lateral SYMPTOMS/DIAGNOSIS: PRESYNCOPE PA AND LATERAL CHEST: The heart is normal in size. The lungs are clear. The mediastinal structures and pleura appear intact. CONCLUSION: Normal chest. Labs on day of discharge: Labs from last 24 hours 02/22/19 02/22/19 02/22/19 08:15 08:15 08:15 WBC 8.61 RBC 4.61 Hgb 13.8 Hct 42.0 MCV 91.1 MCH 29.9 MCHC 32.9 RDW 13.6 Plt Count 189 MPV 10.0 Immature Gran % 0.2 Neutrophils % 67.9 Lymphocytes % 20.6 Monocytes % 9.2 Eosinophils % 1.9 Basophils % 0.2 Absolute Neutrophils 5.85 Absolute Lymphocytes 1.77 Absolute Monocytes 0.79 H Absolute Eosinophils 0.16 Absolute Basophils 0.02 Sodium 141 Potassium 4.4 Chloride 105 Carbon Dioxide 27.8 Anion Gap 8.2 BUN 18 Creatinine 0.90 Estimated GFR/1.73 m2 >= 60.00 Glucose 142 H Calcium 9.0 Magnesium 2.2 PFSH Medical History Hypertension (Chronic) Family History Mother Hypertension Father Heart disease Diabetes Sister No problems noted. Sister No problems noted. Brother No problems noted. Social History Smoking/Tobacco Use Status: Never Alcohol Intake: current Alcohol Intake frequency: a few times a week Alcohol type: beer Drug use: Never Substance use type: does not use Household members: spouse current occupation: retired bee Do you feel safe at home: Yes Do you feel safe in your relationship?: Yes
--- NOTE | 2019-02-22 15:19 | PDOC.CMDIS ---
- If Service Date Differs Date of service: 02/22/19 Time of Service: 15:19 LACE Index Scoring Tool - Questions: Length of Stay (in days): 3 Acuity (Admit via E.D.?): Yes Comorbidities: Diabetes w/o Complication E.D. Visits: 2 - Answers: Total Score: 9 Risk of Readmission: Low Risk Care Management Discharge Reason for Hospitalization: Hypertensive urgency Discharge Plan: Phillip is being discharged home today he will not have any additional services. Phillip was prescribed new medications for hypertension and was able to meet with DM edcucator. Phillip will follow up with primary care as directed. Spouse to transport home at time of discharge. Patient/Family Education Needs: Discharge education, limitations and follow up plan of care, including ask me three and self management.
== END 2019-02-22 13:11 | disposition home or self-care (01) | DRG 305 ==
LOC: ER 15:02 → ICU 02-21 09:31
PROVIDERS: Admitting Provider Internal Medicine; Emergency Provider Student in an Organized Health Care Education/Training Program; PCP Family Medicine; Visit Provider Internal Medicine
DX: I16.0 Hypertensive urgency (principal); R55 Syncope and collapse; I71.2 Thoracic aortic aneurysm, without rupture; E11.9 Type 2 diabetes mellitus without complications; R01.1 Cardiac murmur, unspecified
CPT/HCPCS: 36415; 70496; 70498; 71275; 80048; 80053; 80061; 83721; 93306; 99223; 99232; 99238; 99285; J1650; 71046; 83036; 83735; 83880; 84484; 85025; 85379; 93005; 93010; 99284; J3490

== ENCOUNTER 2019-03-03 00:41 | Outpatient (CLI) | payer MEDICARE, BC, SELFPAY ==
--- NOTE | 2019-03-03 06:54 | DI.US_ITS ---
SYMPTOM/DIAGNOSIS: SCREENING FOR AAA, H/O THORACIC AORTIC ANEURYSM Z13.6 I71.2 DIABETES E11.9 HYPERTENSION I 10 ULTRASOUND OF ABDOMINAL AORTA: There is no evidence of an abdominal aortic aneurysm. The maximal diameter is 2.7 cm proximally. The proximal iliac arteries are normal in diameter. IMPRESSION: No evidence of an abdominal aortic aneurysm
== END 2019-03-03 01:01 ==
PROVIDERS: PCP Family Medicine; Visit Provider Family Medicine
DX: E11.9 Type 2 diabetes mellitus without complications (principal); I10 Essential (primary) hypertension; I71.2 Thoracic aortic aneurysm, without rupture; Z13.6 Encounter for screening for cardiovascular disorders
CPT/HCPCS: 76706

== ENCOUNTER 2019-05-24 07:04 | Outpatient (CLI) | payer MEDICARE, BC, SELFPAY ==
[2019-05-24 08:15] LABS: Hemoglobin A1C 6.2 % (4.5-6.2)
[2019-05-24 08:17] LABS: ALT 40 U/L (16-63); AST 17 U/L (15-37); Albumin 3.9 g/dL (3.4-5.0); Alkaline Phosphatase 78 U/L (46-116); Anion Gap 12.1 mmol/L (3-11); BUN 27 mg/dL (7-18); Bilirubin, Total 0.3 mg/dL (0.2-1.0); CO2 23.9 mmol/L (21.0-32.0); CREATININE 0.84 mg/dL (0.70-1.30); Calcium 8.8 mg/dL (8.5-10.1); Calculated LDL 63 mg/dL; Chloride 105 mmol/L (98-107); Cholesterol 118 mg/dL (<200); Glucose 131 mg/dL (74-106); HDL Cholesterol 41 mg/dL (40-60); Potassium 4.4 mmol/L (3.5-5.1); Sodium 141 mmol/L (136-145); Total Protein 7.5 g/dL (6.4-8.2); Triglyceride 72 mg/dL (<150)
== END 2019-05-24 07:24 ==
PROVIDERS: PCP Family Medicine; Visit Provider Family Medicine
DX: I10 Essential (primary) hypertension (principal); E11.9 Type 2 diabetes mellitus without complications; I71.2 Thoracic aortic aneurysm, without rupture
CPT/HCPCS: 36415; 80053; 80061; 83036

== ENCOUNTER 2020-03-12 16:06 | Outpatient (REF) | payer MEDICARE, BC, SELFPAY ==
[2020-03-12 14:03] LABS: Hemoglobin A1C 6.2 % (<5.7)
[2020-03-12 14:04] LABS: ALT 53 U/L (16-63); AST 26 U/L (15-37); Albumin 4.2 g/dL (3.4-5.0); Alkaline Phosphatase 78 U/L (46-116); Anion Gap 9.7 mmol/L (3-11); BUN 26 mg/dL (7-18); Bilirubin, Total 0.6 mg/dL (0.2-1.0); CO2 27.3 mmol/L (21.0-32.0); CREATININE 0.85 mg/dL (0.70-1.30); Calcium 9.3 mg/dL (8.5-10.1); Calculated LDL 54 mg/dL (<100); Chloride 99 mmol/L (98-107); Cholesterol 117 mg/dL (<200); Glucose 127 mg/dL (74-106); HDL Cholesterol 44 mg/dL (40-60); Magnesium 1.8 mg/dL (1.8-2.4); Potassium 3.9 mmol/L (3.5-5.1); Sodium 136 mmol/L (136-145); Total Protein 7.8 g/dL (6.4-8.2); Triglyceride 97 mg/dL (<150)
[2020-03-12 22:19] LABS: PSA, Screening 1.2 ng/mL (0.0-4.5)
== END 2020-03-12 16:26 ==
LOC: LBN 16:06
PROVIDERS: PCP Family Medicine; Visit Provider Family Medicine
DX: E11.9 Type 2 diabetes mellitus without complications (principal); I10 Essential (primary) hypertension; N40.1 Benign prostatic hyperplasia with lower urinary tract symptoms; Z12.5 Encounter for screening for malignant neoplasm of prostate; I71.2 Thoracic aortic aneurysm, without rupture
CPT/HCPCS: 80053; 80061; 84153; 83036; 83735

== ENCOUNTER 2020-10-24 03:52 | Outpatient (CLI) | payer MEDICARE, BC, SELFPAY ==
[2020-10-24 08:44] LABS: Calculated LDL 71 mg/dL (<100); Cholesterol 135 mg/dL (<200); HDL Cholesterol 46 mg/dL (40-60); Triglyceride 93 mg/dL (<150)
== END 2020-10-24 03:53 | disposition home or self-care (01) ==
LOC: LBO 03:52
PROVIDERS: PCP Family Medicine; Visit Provider Nurse Practitioner Family
DX: I10 Essential (primary) hypertension (principal)
CPT/HCPCS: 36415; 80061

== ENCOUNTER 2021-12-12 01:15 | Outpatient (CLI) | payer MEDICARE, BC, SELFPAY ==
[2021-12-12 22:06] LABS: PSA, Screening 2.7 ng/mL (<=6.5)
== END 2021-12-12 01:16 | disposition home or self-care (01) ==
LOC: LOS 01:15
PROVIDERS: PCP Nurse Practitioner Family; Visit Provider Nurse Practitioner Family
DX: I10 Essential (primary) hypertension (principal); N40.1 Benign prostatic hyperplasia with lower urinary tract symptoms; N13.8 Other obstructive and reflux uropathy; Z12.5 Encounter for screening for malignant neoplasm of prostate
CPT/HCPCS: 36415; 84153; 82565

== ENCOUNTER 2022-12-02 04:33 | Outpatient (CLI) | payer MEDICARE, BC, SELFPAY ==
[2022-12-02 15:22] LABS: CREATININE 1.1 mg/dL (0.70-1.30); Estimated GFR 71.77 (mL/min/1.73m2); Potassium 4.3 mmol/L (3.5-5.1)
== END 2022-12-02 04:34 | disposition home or self-care (01) ==
LOC: LBO 04:33
PROVIDERS: PCP Nurse Practitioner Family; Visit Provider Nurse Practitioner Family
DX: I10 Essential (primary) hypertension (principal); E11.9 Type 2 diabetes mellitus without complications
CPT/HCPCS: 36415; 82565; 84132

== ENCOUNTER 2023-10-27 05:17 | Outpatient (CLI) | payer MEDICARE, BC, SELFPAY ==
[2023-10-27 13:25] LABS: CREATININE 0.9 mg/dL (0.70-1.30); Estimated GFR 90.74 (mL/min/1.73m2); Potassium 4.4 mmol/L (3.5-5.1)
[2023-10-27 13:38] LABS: Hemoglobin A1C 6.6 % (<5.7)
[2023-10-27 23:24] LABS: PSA, Screening 1.9 ng/mL (<=6.5)
[2023-10-28 19:48] LABS: Calculated LDL 68 mg/dL (<100); Cholesterol 149 mg/dL (<200); HDL Cholesterol 53 mg/dL (40-60); Triglyceride 141 mg/dL (<150)
== END 2023-10-27 05:18 | disposition home or self-care (01) ==
LOC: LBO 05:18
PROVIDERS: PCP Nurse Practitioner Family; Visit Provider Nurse Practitioner Family
DX: Z12.5 Encounter for screening for malignant neoplasm of prostate (principal); E11.9 Type 2 diabetes mellitus without complications; Z13.6 Encounter for screening for cardiovascular disorders; I10 Essential (primary) hypertension
CPT/HCPCS: 36415; 80061; 84153; 82565; 83036; 84132

== ENCOUNTER 2024-10-13 16:23 | Outpatient (REF) | payer MEDICARE, BC, SELFPAY ==
[2024-10-13 12:47] LABS: COMMENT (LAB VIEW ONLY) 121.22 mg/dL
[2024-10-13 12:52] LABS: Microalb ug/mg Crea 343.4 ug/mg Cr
== END 2024-10-13 16:24 | disposition home or self-care (01) ==
LOC: LBN 16:23
PROVIDERS: PCP Nurse Practitioner Family; Visit Provider Nurse Practitioner Family
DX: E11.9 Type 2 diabetes mellitus without complications (principal)
CPT/HCPCS: 82043; 82570

== ENCOUNTER 2024-10-25 02:39 | Outpatient (CLI) | payer MEDICARE, BC, SELFPAY ==
[2024-10-25 15:33] LABS: Anion Gap 9.6 mmol/L (3-11); BUN 29 mg/dL (7-18); CO2 27.4 mmol/L (21.0-32.0); CREATININE 1.1 mg/dL (0.70-1.30); Calcium 9.8 mg/dL (8.5-10.1); Chloride 104 mmol/L (98-107); Estimated GFR 70.88 (mL/min/1.73m2); Glucose 143 mg/dL (74-106); Sodium 141 mmol/L (136-145)
[2024-10-25] MEDS: Omnipaque 350 MG/ML 100 ML BTL IJ (15:47)
[2024-10-25] MEDS: Normal Saline - Diluent 50 ML VIAL IJ (15:48)
--- NOTE | 2024-10-25 15:52 | DI.CT_ITS ---
Exam(s) CT THORAX CTA EXAM: CT THORAX CTA CLINICAL HISTORY: follow up monitoring I70.201 ATHEROSCLEROSIS [place] ARTERIES RT LEG. TECHNIQUE: Imaging Protocol: CT angiography of the chest was performed using pulmonary embolus everardo col. Multi planar reconstructions were performed. CONTRAST MATERIAL: Intravenous: Omnipaque 350 Contrast volume: 100 cc COMPARISON: CT CT CHEST PE CTA from 02/20/2019 FINDINGS: CHEST: CARDIAC: Heart size is upper normal. There is no pericardial effusion. The diameter of the ascendin g thoracic aorta is again noted be prominent measuring 4 cm by 4.1 cm which is not significantly incr eased from the prior 2019 measurement. The diameter of the mid thoracic aortic arch is again slightly prominent measuring 3.2 cm. The diameter of the proximal descending thoracic aorta is also slightly prominent measuring 3.3 cm, unchanged. The diameter of the descending thoracic aorta below this level is upper normal. There is no evidence of aortic dissection. There is no evidence of perforating aort ic ulcer a nor intramural hematoma. PULMONARY ARTERIES: There are no intraluminal filling defects to suggest acute pulmonary emboli. LUNGS: There are mild increased markings in the posterior basal segment of both lower lobes but no co nfluent infiltrates nor pleural effusions and there are no ominous pulmonary nodules.. MEDIASTINUM: There is no hilar nor mediastinal adenopathy. There appears to be a nodule in the left t hyroid lobe which is taller than wider in the transverse plane and should undergo ultrasound. PARTIALLY VISUALIZED UPPERMOST ABDOMEN: No significant adrenal masses. Spleen size normal. Hepatic steatosis. OSSEOUS: No significant osseous lesions.No fractures.. IMPRESSION: 1. The diameter of the thoracic aorta is again noted be prominent with measurements as above but with out significant change compared to the prior CT scan of 2019.. No evidence of aortic dissection. He art size is upper normal and there is no pericardial effusion. 2. No evidence of pulmonary emboli nor pulmonary infarction. 3. No new significant pulmonary nodules, pleural effusions, nor intrathoracic adenopathy. RADIATION DOSE DELIVERED: 239.62mGy.cm Total DLP DATA REPOSITORY: All CT scans at this facility are submitted to the National Radiology Data Registry (NRDR) Dose Index Registry (DIR) with the [employer] (ACR). RADIATION OPTIMIZATION: All CT scans at this facility use at least one of these dose optimization te chniques: automated exposure control; mA and/or kV adjustment per patient size (includes targeted exa ms where dose is matched to clinical indication); or iterative reconstruction.
[2024-10-25 16:07] LABS: Calculated LDL 90 mg/dL (<100); Cholesterol 161 mg/dL (<200); HDL Cholesterol 51 mg/dL (>or=40); Triglyceride 102 mg/dL (<150)
[2024-10-27 09:25] LABS: HIV-1/2 Ag & Ab Screen Negative (Negative)
[2024-10-27 09:37] LABS: Hepatitis C Ab w Rflx HCV PCR Negative (Negative)
[2024-10-27 10:03] LABS: Hep B Core Antibody Negative (Negative)
== END 2024-10-25 02:59 ==
LOC: DI 02:39
PROVIDERS: PCP Nurse Practitioner Family; Visit Provider Nurse Practitioner Family
DX: E78.2 Mixed hyperlipidemia (principal); Z13.220 Encounter for screening for lipoid disorders; Z11.59 Encounter for screening for other viral diseases; I10 Essential (primary) hypertension; Z11.4 Encounter for screening for human immunodeficiency virus [HIV]; Z00.00 Encounter for general adult medical examination without abnormal findings; I70.201 Unspecified atherosclerosis of native arteries of extremities, right leg
CPT/HCPCS: 71275; 80048; 80061; 86704; 86803; 87389; J3490

== ENCOUNTER 2024-11-29 00:36 | Outpatient (CLI) | payer MEDICARE, BC, SELFPAY ==
--- NOTE | 2024-11-29 07:15 | DI.US_ITS ---
Exam(s) US THYROID EXAM: US THYROID CLINICAL HISTORY: THYROID NODULE, FOUND ON CT,E04.1. TECHNIQUE: Ultrasound thyroid performed using standard protocol. COMPARISON: CT CT THORAX CTA from 10/25/2024 FINDINGS: ISTHMUS: 4 mm RIGHT LOBE: Size: 4.6 x 1.9 x 2.0 cm Echogenicity: Normal. Vascularity: Normal. Nodules: Solid isoechoic nodule measuring 1.4 x 1.0 x 1.2 cm in the upper to mid pole. Smooth margin s with punctate echogenic foci. Wider than tall. TR 4, follow-up due to small size. LEFT LOBE: Size: 5.5 x 2.0 x 1.7 cm Echogenicity: Normal. Vascularity: Normal. Nodules: 1.6 x 1.0 by 1.2 centimeter nodule in the mid lobe which is mostly solid, isoechoic, smoothl y marginated without echogenic foci. It is measuring wider than tall. TR 3, follow-up due to size o james 1.5 cm. OTHER FINDINGS: None. IMPRESSION: Bilateral thyroid nodules. Ultrasound follow-up recommended. DATA REPOSITORY:
== END 2024-11-29 00:56 ==
LOC: DI 00:37
PROVIDERS: PCP Nurse Practitioner Family; Visit Provider Nurse Practitioner Family
DX: E04.1 Nontoxic single thyroid nodule (principal)
CPT/HCPCS: 76536